=== PATIENT | male | born 1995 | race Two or more races ===

== ENCOUNTER 2019-05-20 21:14 | Emergency (ER) | payer SELFPAY ==
[2019-05-20 21:20] VITALS: BP 133/70
[2019-05-20 22:42] LABS: INFLUENZA A PATIENT NEGATIVE (NEGATIVE); INFLUENZA B PATIENT NEGATIVE (NEGATIVE)
[2019-05-20] MEDS ORDERED: BENZ100C PO (22:49)
[2019-05-20] MEDS ORDERED: PRED50TA PO (22:49)
--- NOTE | 2019-05-20 22:49 | PHYS DOC ---
Past Medical History Alcohol Use: None Adult General Chief Complaint Chief Complaint: FLU SYMPTOM HPI HPI Patient is a 23 year old male who presents to the ED today complaining of body aches, fever, chills and a cough that began 3 days ago. Review of Systems Review of Systems Constitutional: Reports body aches, fever and chills [] Eyes: Denies change in visual acuity, redness, or eye pain [] HENT: Denies nasal congestion or sore throat [] Respiratory: Reports cough denies shortness of breath [] Cardiovascular: No additional information not addressed in HPI [] GI: Denies abdominal pain, nausea, vomiting, bloody stools or diarrhea [] : Denies dysuria or hematuria [] Musculoskeletal: Denies back pain or joint pain [] Integument: Denies rash or skin lesions [] Neurologic: Denies headache, focal weakness or sensory changes [] All other systems were reviewed and found to be within normal limits, except as documented in this note. Allergies Allergies Allergies Coded Allergies Type Severity Reaction Last Updated Verified No Known Drug Allergies 05/20/19 No Physical Exam Physical Exam Constitutional: Well developed, well nourished, no acute distress, non-toxic appearance. [] HENT: Normocephalic, atraumatic, bilateral external ears normal, oropharynx moist, no oral exudates, nose normal. [] Eyes: PERRLA, EOMI, conjunctiva normal, no discharge. [] Neck: Normal range of motion, no tenderness, supple, no stridor. [] Cardiovascular:Heart rate regular rhythm, no murmur [] Lungs & Thorax: Bilateral breath sounds clear to auscultation [] Abdomen: Bowel sounds normal, soft, no tenderness, no masses, no pulsatile masses. [] Skin: Warm, dry, no erythema, no rash. [] Back: No tenderness, no CVA tenderness. [] Extremities: No tenderness, no cyanosis, no clubbing, ROM intact, no edema. [] Neurologic: Alert and oriented X 3, normal motor function, normal sensory function, no focal deficits noted. [] Psychologic: Affect normal, judgement normal, mood normal. [] Current Patient Data Vital Signs Vital Signs Date Time Temp Pulse Resp B/P (MAP) Pulse Ox O2 Delivery O2 Flow Rate FiO2 05/20/19 21:20 99.0 58 14 133/70 (91) 98 Room Air 99.0 Lab Values Laboratory Tests Test 05/20/19 21:41 Influenza Type A Antigen Negative (NEGATIVE) Influenza Type B Antigen Negative (NEGATIVE) EKG EKG [] Radiology/Procedures Radiology/Procedures [] Course & Med Decision Making Course & Med Decision Making Pertinent Labs and Imaging studies reviewed. (See chart for details) This is a 23-year-old male patient presenting to the ED today with cough fever or body aches chills for 3 days. Patient is afebrile. Negative influenza A or B. Supportive care measures recommended. Contract Administrator line was used for [place] Dragon Disclaimer Dragon Disclaimer This electronic medical record was generated, in whole or in part, using a voice recognition dictation system. Departure Departure Impression: Primary Impression: Cough Additional Impressions: Fever Body aches Disposition: HOME, SELF-CARE Condition: STABLE Referrals: NO PCP (PCP) follow up with your doctor in 1-2 weeks Patient Instructions: Cough, Adult, [id number], Fever, Adult, [id number] Additional Instructions: You were evaluated in the emergency room with symptoms suspicious of viral illness. Take the prescribed medications as ordered. Follow-up with your own doctor in 1-2 weeks. Scripts Prednisone (PREDNISONE) 50 Mg Tablet 1 TAB PO DAILY, #4 TAB Prov: JENNIFER DALLAS APRN 05/20/19 Benzonatate (TESSALON PERLE) 100 Mg Capsule 1 CAP PO TID, #30 CAP Prov: JENNIFER DALLAS APRN 05/20/19 Problem Qualifiers Additional Impressions: Fever Fever type: unspecified Qualified Codes: R50.9 - Fever, unspecified JENNIFER DALLAS [employer] OPERATIONS OPERATOR May 20, 2019 22:49
[2019-05-20] MEDS ORDERED: predniSONE 10 MG TABLET PO ONE (23:00)
[2019-05-20] MEDS ORDERED: BENZONATATE 100 MG CAPSULE. PO ONE (23:00)
== END 2019-05-20 22:58 | disposition home or self-care (01) ==
LOC: ER 21:14
DX: R05 Cough (principal); R50.9 Fever, unspecified; R52 Pain, unspecified
CPT/HCPCS: 87804; 99284; J7512; 96360; 96372